=== PATIENT | female | born 2000 | race Caucasian/White ===

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

== ENCOUNTER 2019-10-14 02:40 | Emergency (ER) | payer MEDICAID ==
[~2019-10-14] VITALS: Ht 170.2 cm; Wt 62.8 kg
--- NOTE | 2019-10-14 03:26 | NUR ---
Patient ambulated into room. Patient is alert, oriented and speaks clearly and concisely. Relayed to RN that patient had a dilation and curettage a year earlier, then had a tampon requiring medical assistance to dislodge a year later. Patient reports intercourse has been painful since. Patient reports no acute changes, no bleeding and can't seem to remember the last time she saw a semiautomatic taper operator. Provider to bedside. RN educated patient on acute versus chronic issues and attempted to educate patient on doctors office visits for regular care. Returned to the bedside with a list of four physical therapy providers providing pelvic floor physical therapy. Patient then assisted to the bathroom and provided a clean catch urine sample. Patient then exchanged gurnies for one with stirrups, and gynecological cart moved to bedside. pelvic exam complete now and samples carried to lab by rashawn. Patient resting on gurney now, awaiting results.
[2019-10-14 03:48] LABS: WET PREP WBCS FEW (FEW)
[2019-10-14 03:55] LABS: CLUE CELLS NONE SEEN (NONE SEEN)
--- NOTE | 2019-10-14 04:36 | NUR ---
D/C INST REVIEWED W/THE PT TO INCLUDE NEW ANTIFUNGAL CREAM / USAGE. F/U OP W/ PT FOR PELVIC STRENGTHING. THE PT WAS GIVEN A LIST OF PT PROVIDERS, WHICH SHE LEFT BEHIND.
[2019-10-14 04:39] VITALS: BP 122/77
== END 2019-10-14 04:41 | disposition home or self-care (01) ==
LOC: ED 03:36
DX: N76.0 Acute vaginitis (principal)
CPT/HCPCS: 87210; 87491; 87591; 87808; 99283

== ENCOUNTER 2019-11-26 07:50 | Emergency (ER) | payer SELFPAY ==
[~2019-11-26] VITALS: Ht 172.7 cm; Wt 61.7 kg
[2019-11-26 07:54] VITALS: BP 128/80
[2019-11-26] MEDS ORDERED: KETOROLAC 30 MG/1 ML IVPush ONE (08:30)
[2019-11-26] MEDS ORDERED: ONDANSETRON 2MG/ML, 2ML IVPush ONE (08:30)
[2019-11-26] MEDS ORDERED: MORPHINE SULFATE 4 MG/ML, 1ML IVPush PRN (08:30)
[2019-11-26] MEDS ORDERED: MORPHINE SULFATE 4 MG/ML, 1ML ONE (08:35)
[2019-11-26] MEDS ORDERED: KETOROLAC 30 MG/1 ML ONE ×2 (08:35→09:35)
[2019-11-26] MEDS ORDERED: ONDANSETRON 2MG/ML, 2ML ONE (08:35)
--- NOTE | 2019-11-26 08:38 | NUR ---
ATTEMPTED US, PT HAVING LABS DRAWN aa
--- NOTE | 2019-11-26 08:43 | NUR ---
PT REFUSED PIV AND PAIN MEDS- ERP AWARE.
[2019-11-26 08:50] LABS: BASOPHILS # (AUTO) 0.09 x10^3/uL (0-0.3); BASOPHILS % (AUTO) 1 % (0-1); EOSINOPHILS # (AUTO) 0.08 x10^3/uL (0-0.8); EOSINOPHILS % (AUTO) 1 % (1-7); LYMPHOCYTES # (AUTO) 1.95 x10^3/uL (1-6.1); LYMPHOCYTES % (AUTO) 24 % (22-44); MD NO; MEAN CORPUSCULAR HGB CONC 33.4 g/dL (32.4-35.8); MEAN CORPUSCULAR VOLUME 95.8 fL (80-100); MONOCYTES # (AUTO) 0.28 x10^3/uL (0-1.4); MONOCYTES % (AUTO) 4 % (2-9); NEUTROPHILS # (AUTO) 5.73 x10^3/uL (1.8-8.0); NEUTROPHILS % (AUTO) 71 % (42-75); PLATELET COUNT 261 x10^3/uL (130-400); RED BLOOD COUNT 4.86 x10^6/uL (3.82-5.3); RED CELL DISTRIBUTION WIDTH 13.4 % (9.6-15.2)
[2019-11-26 08:59] LABS: ALBUMIN 4.4 g/dL (3.4-5.0); ANION GAP 10 mmol/L (5-15); CALCIUM 8.7 mg/dL (8.5-10.1); CHLORIDE 109 mmol/L (98-107)
[2019-11-26 09:05] LABS: ALANINE AMINOTRANSFERASE 25 U/L (12-78); ALKALINE PHOSPHATASE 88 U/L (45-117); BILIRUBIN,TOTAL 0.5 mg/dL (0.2-1.0); CREATININE 0.73 mg/dL (0.55-1.02); TOTAL PROTEIN 8.1 g/dL (6.4-8.2)
[2019-11-26 09:20] LABS: MICROSCOPIC INDICATED
--- NOTE | 2019-11-26 09:21 | NUR ---
PT TO US
[2019-11-26] MEDS ORDERED: KETOROLAC 30 MG/1 ML IM ONE (09:30)
[2019-11-26 09:34] LABS: CULTURE INDICATED? YES
--- NOTE | 2019-11-26 10:00 | NUR ---
PT RETURNED FROM US, UPRIGHT ON GURNEY AWAKE & COMFORTABLE, RESPONDS APPROP TO STAFF, MEDICATED PER EMAR FOR C/O PAIN, COMFORT MEASURES PROVIDED, FRIENDS AT BS, CALL LIGHT WITHIN REACH.
[2019-11-26] MEDS ORDERED: ACETAMINOPHEN 325 MG TABLET ONE (10:50)
[2019-11-26] MEDS ORDERED: ACETAMINOPHEN 325 MG TABLET PO ONE (11:00)
--- NOTE | 2019-11-26 11:02 | NUR ---
Patient given discharge instructions and they have confirmed that they understand the instructions. Patient ambulatory with steady gait.
== END 2019-11-26 11:03 | disposition home or self-care (01) ==
LOC: ED 10:16
DX: R10.31 Right lower quadrant pain (principal); F17.200 Nicotine dependence, unspecified, uncomplicated
CPT/HCPCS: 36415; 76830; 76857; 80053; 81001; 84703; 85025; 87077; 87086; 87147; 87186; 96372; 99284; J1885

== ENCOUNTER 2019-11-29 05:04 | Emergency (ER) | payer SELFPAY ==
[~2019-11-29] VITALS: Ht 172.7 cm; Wt 62.4 kg
--- NOTE | 2019-11-29 05:29 | NUR ---
Patient presents to ER with RUQ abd pain which radiates to back. Pain is worse in the back on the left side on palpation. Patient states she was here two days ago for the same and came back because the pain is increasing. Patient is nauseous but denies vomiting. Denies diarrhea or fevers. She states she is urinating often but denies burning. Patient is in NAD. Respirations even and unlabored.
[2019-11-29 05:41] LABS: HCG UR SG 1.006 (1.003-1.030); MICROSCOPIC AUTO
[2019-11-29 05:42] LABS: CULTURE INDICATED? YES
[2019-11-29 06:34] LABS: BASOPHILS # (AUTO) 0.02 x10^3/uL (0-0.3); BASOPHILS % (AUTO) 0 % (0-1); EOSINOPHILS # (AUTO) 0.06 x10^3/uL (0-0.8); EOSINOPHILS % (AUTO) 1 % (1-7); LYMPHOCYTES # (AUTO) 1.42 x10^3/uL (1-6.1); LYMPHOCYTES % (AUTO) 15 % (22-44); MD NO; MEAN CORPUSCULAR HEMOGLOBIN 32.1 pg (27.0-34.8); MEAN CORPUSCULAR HGB CONC 33.5 g/dL (32.4-35.8); MEAN PLATELET VOLUME 8.1 fL (7.4-10.4); MONOCYTES # (AUTO) 0.48 x10^3/uL (0-1.4); MONOCYTES % (AUTO) 5 % (2-9); NEUTROPHILS # (AUTO) 7.42 x10^3/uL (1.8-8.0); NEUTROPHILS % (AUTO) 79 % (42-75); PLATELET COUNT 174 x10^3/uL (130-400); RED BLOOD COUNT 4.62 x10^6/uL (3.82-5.3); RED CELL DISTRIBUTION WIDTH 13.2 % (9.6-15.2)
[2019-11-29 06:44] LABS: ALANINE AMINOTRANSFERASE 15 U/L (12-78); ALBUMIN 3.6 g/dL (3.4-5.0); ANION GAP 9 mmol/L (5-15); CALCIUM 8.8 mg/dL (8.5-10.1); CHLORIDE 110 mmol/L (98-107); CREATININE 0.86 mg/dL (0.55-1.02)
[2019-11-29 06:46] LABS: ALKALINE PHOSPHATASE 72 U/L (45-117); BILIRUBIN,TOTAL 0.7 mg/dL (0.2-1.0)
--- NOTE | 2019-11-29 06:48 | NUR ---
Report given to NEEMA Rain.
--- NOTE | 2019-11-29 06:50 | NUR ---
ASSUMED CARE. AWAITING DISPO. NO DISTRESS AT THIS TIME
[2019-11-29] MEDS ORDERED: ACETAMINOPHEN 500 MG TABLET ONE (07:50)
[2019-11-29 07:55] VITALS: BP 108/54
[2019-11-29] MEDS ORDERED: ACETAMINOPHEN 500 MG TABLET PO ONE (08:00)
== END 2019-11-29 07:57 | disposition home or self-care (01) ==
LOC: ED 05:58
DX: N10 Acute pyelonephritis (principal)
CPT/HCPCS: 36415; 74018; 76770; 80053; 81001; 81025; 85025; 87077; 87086; 87186; 99284